=== PATIENT | female | born 1965 | race African-American/Black ===

== ENCOUNTER 2017-07-13 11:47 | Emergency (ER) | payer OTHER ==
[~2017-07-13] VITALS: Ht 162.6 cm; Wt 108.0 kg
[2017-07-13 12:08] VITALS: BP 154/75
== END 2017-07-13 12:14 | disposition home or self-care (01) ==
LOC: FSED 11:47
DX: J02.9 Acute pharyngitis, unspecified (principal); J06.9 Acute upper respiratory infection, unspecified; F17.210 Nicotine dependence, cigarettes, uncomplicated; I10 Essential (primary) hypertension; E11.9 Type 2 diabetes mellitus without complications; E78.5 Hyperlipidemia, unspecified
CPT/HCPCS: 99282